=== PATIENT | male | born 1965 | race Caucasian/White ===

== ENCOUNTER 2022-06-22 09:34 | Outpatient (REF) | payer BC, MEDICAID, SELFPAY ==
[2022-06-22 11:36] LABS: Anion Gap 14 (12-20); Blood Urea Nitrogen 12 mg/dL (9-16); Calcium 9.8 mg/dL (8.4-10.2); Carbon Dioxide 28 mmol/L (22-29); Chloride 100 mmol/L (96-108); Cholesterol 197 mg/dL; Estimated Glomerular Filt Rate > 60; Glucose Random 101 mg/dL (60-115); HDL Cholesterol 58 mg/dL; LDL Cholesterol Calculated 124 mg/dl; Potassium 4.7 mmol/L (3.3-5.1); Sodium 137 mmol/L (135-145); Triglycerides 75 mg/dL
== END 2022-06-22 09:35 | disposition home or self-care (01) ==
LOC: HO.LAB 09:34
PROVIDERS: PCP Family Medicine; Visit Provider Family Medicine
DX: Z13.220 Encounter for screening for lipoid disorders (principal); I10 Essential (primary) hypertension
CPT/HCPCS: 36415; 80048; 80061

== ENCOUNTER 2025-06-13 09:30 | Outpatient (AMB) | payer BC, SELFPAY ==
--- NOTE | 2025-06-13 09:41 | MHC.PC.OV ---
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: No Accompanied by: Self / Same As Patient Allergies Seasonal Allergies Allergy (Severe, Verified 06/13/25 09:59) Itchy Eyes Medication List - Last Reconciled 06/16/25 by AUNG Martinez clonidine HCl 0.1 mg PO BEDTIME fluticasone propionate 110 mcg/actuation 1 puff inhalation BID mecobalamin (vitamin B12) 1,000 mcg PO DAILY ygazgdqnlfhc-hulmeypk-evkhye 1 tab PO DAILY Tobacco use date assessed: 06/13/25 Dental Screening Dental Screen Date: 06/13/25 Did you have a dental visit in the last 12 months?: Yes Did you have a dental problem in the last 6 months where you did not have access to dental care?: No Was dental information given to patient?: Patient has dentist HPI establish care HPI Details Previous PCP: Shabana Fiore at [facility] Last visit: 12/2024 Last PE:11/2023 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 Medications: Family HX:family hx for glaucoma and macular degenerative-paternal uncle, chf paternal grandfather and uncle passed from chf. nonhodgkin lymphoma, maternal aunt pancreatic cancer orther aunt brain cancers, dementia both paternal aunt. Problem: The patient is a 59-year-old male presenting to [facility] primary care and for a general health evaluation. He reports a history of what he believes was major depression, which is now in remission, but he continues to experience anxiety, particularly with social interaction and leaving his home. He uses clonidine as needed but finds it causes significant sedation and is seeking a potential alternative. The patient reports persistent respiratory symptoms following a COVID-19 infection in May 2023 and an influenza infection in October. Symptoms include lingering congestion with nasal and oral discharge that is typically white and sometimes gelatinous. A chest X-ray around December was reportedly normal. He quit drinking alcohol one year ago and subsequently started smoking cigarettes, with a current consumption of 5-7 per day. His previous primary care provider had prescribed an inhaler, which he found to be expensive. He has a history of back problems and rotator cuff issues in both shoulders, which have been present for approximately 10 years and were previously managed with x-rays and medication. He also experiences intermittent mechanical lower back pain. Past surgical history includes an umbilical hernia repair about 6 years ago. A past colonoscopy resulted in the removal of six polyps. In 2022, an ultrasound of a suspected lump on the left testicle was benign, showing a fibrous tissue. The patient sees an care management associate for regular check-ups due to a family history of glaucoma and macular degeneration. He denies any personal history of hypertension, chest pain, or diabetes, and reports that his last blood tests were normal. [facility] Medical History Panic attacks Generalized anxiety disorder Major depression Surgical History History of colonoscopy with polypectomy H/O umbilical hernia repair Family History Paternal Uncle Glaucoma Degenerative myopia with macular hole, bilateral eye Paternal Grandfather CHF (congestive heart failure) Paternal Uncle CHF (congestive heart failure) Paternal Aunt Non Hodgkin's lymphoma Pancreatic cancer Paternal Aunt Brain cancer Dementia Social History Alcohol intake: never Patient Tobacco Use Status: Current everyday Tobacco user Tobacco use type: Cigarette e-Cigarette/Vaping Use: Never Used Substance Use Type: Marijuana Current occupational status: employed 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 1. Little interest or pleasure in doing things: not at all 2. Feeling down, depressed, or hopeless: not at all 3. Trouble falling or staying asleep, or sleeping too much: not at all 4. Feeling tired or having little energy: not at all 5. Poor appetite or overeating: not at all 6. Feeling bad about yourself - or that you are a failure or have let yourself or your family down: not at all 7. Trouble concentrating on things, such as reading the newspaper or watching television: not at all 8. Moving or speaking so slowly that other people could have noticed. Or the opposite - being so fidgety or restless that you have been moving around a lot more than usual: not at all 9. Thoughts that you would be better off or of hurting yourself in some way: not at all Total score: 0 Depression Screening Interpretation: Negative Depression Screening Done: Yes Source: Developed by Drs. Christopher Orellana, Cecilia Maloney, Ramo Dasilva and colleagues, with an educational kyle from [employer]. Thrive Questionnaire Date Thrive assessed: 06/13/25 I am a: Patient What is your living situation today?: I have a steady place to live Within the past 12 months, did the food you bought not last and you didn't have the money to get more?: Never true Within the past 12 months, did you worry whether your food would run out before you got money to buy more?: Never true Do you have trouble paying for medicines?: No Do you have trouble getting transportation to medical appointments?: No Do you have trouble paying your heating and electricity bill?: No Do you have trouble taking care of your child, family member or friend?: No Do you have trouble with day-to-day activities such as bathing, preparing meals, shopping, managing finances, etc.?: No Are you currently unemployed and looking for a job?: No Are you interested in more education?: No Currently or been in a relationship where the following occur: No concerns reported THRIVE Score: 0 AUDIT C Alcohol Use Questionnaire (AUDIT-C) 1. How often do you have a drink containing alcohol?: Never Total Score: 0 ANANYA-7 AMB Questionnaire ANANYA-7 Date ANANYA - 7 assessed: 06/13/25 Feeling nervous, anxious, or on edge: 2 = More than half the days Not being able to stop or control worryin = Not at all Worrying too much about different things: 0 = Not at all Trouble relaxin = Not at all Being so restless that it is hard to sit still: 0 = Not at all Becoming easily annoyed or irritable: 0 = Not at all Feeling afraid as if something awful might happen: 0 = Not at all Total ANANYA-7 score (0-4 normal; 5-9 mild; 10-14 moderate; 15-21 severe): 2 Source: Developed by Drs. Christopher Orellana, Cecilia Maloney, Ramo Dasilva and colleagues, with an educational kyle from [employer]. Review of Systems Narrative - Constitutional: Denies fever. - Eyes: Reports decreasing vision requiring a stronger prescription. - Respiratory: Reports persistent nasal and oral discharge, described as white and sometimes gelatinous. - Cardiovascular: Denies chest pain and high blood pressure. - Gastrointestinal: Denies heartburn, constipation, and diarrhea. - Musculoskeletal: Reports a history of bilateral shoulder pain and intermittent lower back pain. - Psychiatric: Reports anxiety with social interaction and leaving the house. - Endocrine: Denies a history of diabetes. Const Denies headache(s) Eyes Reports change in vision and Denies loss of vision ENT Denies vertigo, Denies dizziness, Denies headache(s), Reports nasal discharge (Whitish phlegm) and Denies sore throat Card Denies chest pain, Denies leg edema and Denies lightheadedness Resp Reports cough (Whitish phlegm), Denies hemoptysis and Denies wheezing GI Denies abdominal pain, Denies melena, Denies constipation, Denies diarrhea and Denies vomiting Denies dysuria, Denies urinary frequency and Denies urinary urgency Musc Reports back pain (Intermittent mid back), Reports arthralgias (Bilateral shoulders), Denies joint swelling, Denies numbness and Denies tingling Neuro Denies Abnormal speech present, Denies behavioral changes, Denies vertigo, Denies dizziness, Denies headache(s), Denies loss of vision, Denies memory loss, Denies numbness and Denies tingling Psych Reports anxiety (Generalized along with social), Denies behavioral changes, Denies depression, Denies memory loss and Reports panic attacks Vincent/Lymph Denies easy bleeding and Denies easy bruising Aller/Immun Denies wheezing Physical exam (Primary Care) Vital Signs: Last Vital Signs Temp 96.9 F 06/13/25 09:44 Pulse 66 06/13/25 09:44 Resp 18 06/13/25 09:44 BP 102/70 06/13/25 09:44 Pulse Ox 98 06/13/25 09:44 Oxygen Delivery Method Room Air 06/13/25 09:44 BMI result Body Mass Index 23.6 Tobacco/Smoking Status: Tobacco use Status Tobacco use date assessed 06/13/25 06/13/25 09:56 Patient Tobacco Use Status Current everyday Tobacco 06/13/25 09:56 Tobacco use type Cigarette 06/13/25 09:56 e-Cigarette/Vaping Use Never Used 06/13/25 09:56 PHQ-9: PHQ-9 Score PHQ-9: Total score 0 06/16/25 21:51 Depression Screening Interpretation: Negative Thrive Assessment: Date of Thrive Assessment Date Thrive assessed 06/13/25 06/13/25 09:42 Currently or been in a relationship where the following occur: No concerns reported Const General: healthy appearing, no acute distress, alert and awake Nutritional Appearance: well nourished Orientation/consciousness: oriented to person, oriented to place and oriented to time HENMT Ears: TM's normal bilaterally General nose exam: Normal nasal mucous membranes and turbinates present Eyes Conjunctivae: conjunctivae normal Sclerae: sclerae normal Pupils: Equal, round and reactive pupils present Neck Neck: Yes no lymphadenopathy and Yes no JVD Thyroid: Thyroid normal Carotids: no bruits Resp Effort & Inspection: normal respiratory effort and not tachypneic Auscultation: no crackles, no rales, no rhonchi and no wheezes Cardio Rate: regular rate Rhythm: regular rhythm Heart sounds: no murmurs and normal S1 and S2 GI Palpation (GI): Soft to palpation, nontender, no hepatomegaly and no splenomegaly Auscultation: normal bowel sounds Back/Spine/Pelvis Thoracic/Lumbar Spine: No thoracic spinal tenderness and No lumbar spinal tenderness Skin General skin exam: no rashes or lesions noted and dry skin Neuro General: oriented to person, oriented to place and oriented to time Cranial nerves: Yes Equal, round and reactive pupils present Speech: No Abnormal speech present Gait exam (Neuro): Normal gait present Motor exam (neuro): no tremor noted Extrem Right upper extremity: full ROM and shoulder/upper arm Details: no tenderness and no swelling Left upper extremity: full ROM and shoulder/upper arm Details: no tenderness and no swelling Right lower extremity: full ROM; no edema Left lower extremity: full ROM; no edema Psych Mental Status: mental status grossly normal Speech and movement: Normal speech and movement present Affect: normal affect Attitude: cooperative Thought process: Normal thought process present Coding Level of Care Code New Pt Level 3 (37594) Diagnoses Major depressive disorder, remission status unspecified, unspecified whether recurrent F32.9 Active/Remission status: remission status unspecified Major depression recurrence: unspecified whether recurrent Generalized anxiety disorder F41.1 Panic attacks F41.0 Bilateral shoulder pain, unspecified chronicity M25.511; M25.512 Chronicity: unspecified Smoker F17.200 Nasal congestion R09.81 Time Spent (min) 32 Assessment & Plan Assessment & Plan (1) Major depression: Code(s): F32.9 - Major depressive disorder, single episode, unspecified Category: Medical Qualifiers: Active/Remission status: remission status unspecified Major depression recurrence: unspecified whether recurrent Qualified Code(s): F32.9 - Major depressive disorder, single episode, unspecified Plan: Encouraged CBT Denies SI/HI (2) Generalized anxiety disorder: Code(s): F41.1 - Generalized anxiety disorder Category: Medical Plan: The patient reports ongoing social anxiety and agoraphobia, finding that his current medication, clonidine, causes excessive sedation. He has expressed interest in exploring alternative treatments in the future. No medication changes will be made at this time, pending a complete health evaluation. (3) Panic attacks: Code(s): F41.0 - Panic disorder [episodic paroxysmal anxiety] Category: Medical Plan: The patient reports ongoing social anxiety and agoraphobia, finding that his current medication, clonidine, causes excessive sedation. He has expressed interest in exploring alternative treatments in the future. No medication changes will be made at this time, pending a complete health evaluation. (4) Bilateral shoulder pain: Code(s): M25.511 - Pain in right shoulder; M25.512 - Pain in left shoulder Category: Medical Qualifiers: Chronicity: unspecified Qualified Code(s): M25.511 - Pain in right shoulder; M25.512 - Pain in left shoulder Plan: Ongoing shoulder pain, reports rotator cuff interest especially in left shoulder. Reports that the pain is mild, able to do 100 pushups a day. Continue conservative pain management. (5) Smoker: Code(s): F17.200 - Nicotine dependence, unspecified, uncomplicated Category: Social Hx Plan: Encouraged smoking cessation (6) Nasal congestion: Code(s): R09.81 - Nasal congestion Category: Medical Plan: Encouraged antihistamine OTC daily as needed. Orders: Orders UA CC w/rflx Micro + Cult 06/13/25 Z00.00 - Encounter for general adult medical examination without abnormal findings PSA,Total (Free>4and<10) 06/13/25 Z00. - Encounter for general adult medical examination without abnormal findings Complete Blood Count Auto Diff 06/13/25 Z00. - Encounter for general adult medical examination without abnormal findings Comprehensive Hiram. Panel Fast 06/13/25 Z00. - Encounter for general adult medical examination without abnormal findings Lipid Panel 06/13/25 Z00.00 - Encounter for general adult medical examination without abnormal findings TSH reflex Free T4 06/13/25 Z00. - Encounter for general adult medical examination without abnormal findings Vitamin D 25-OH Total 06/13/25 Z00.00 - Encounter for general adult medical examination without abnormal findings
[2025-06-13 09:44] VITALS: BP 102/70; PULSE 66; RESP 18; TEMP 36.1; O2SAT 98; BMI 23.6
== END 2025-06-13 11:54 | disposition home or self-care (01) ==
PROVIDERS: PCP Family Medicine
DX: F32.9 Major depressive disorder, single episode, unspecified (principal); F41.1 Generalized anxiety disorder; F41.0 Panic disorder [episodic paroxysmal anxiety]; M25.511 Pain in right shoulder; M25.512 Pain in left shoulder; F17.200 Nicotine dependence, unspecified, uncomplicated; R09.81 Nasal congestion

== ENCOUNTER 2025-07-18 10:14 | Outpatient (REF) | payer BC, SELFPAY ==
[2025-07-18 10:29] LABS: MANUAL DIFF FLAG NO
[2025-07-18 11:15] LABS: Hematocrit 47.7 % (42.0-52.0); Hemoglobin 16.6 g/dl (14.0-18.0); Imm Gran Abs Auto 0.03 X10*3/uL (0.00-0.03); Imm Gran Pct Auto 0.3 % (0.0-0.4); Lymphocytes Absolute Auto 1.8 X10*3/uL (1.2-4.9); Mean Corpuscular HGB Conc 34.8 g/dl (31.0-36.0); Mean Corpuscular Hemoglobin 33.5 pg (27.0-33.0); Mean Corpuscular Volume 96.4 fL (80.0-98.0); NRBC Abs Auto 0.000 X10*3/uL (0.0-0.012); NRBC Pct Auto 0.0 /100WBC (0.0-0.2); Platelet Count 176 X10*3/uL (160-400); Red Blood Count 4.95 X10*6/uL (4.60-5.80); White Blood Count 8.7 X10*3/uL (4.8-10.8)
[2025-07-18 12:02] LABS: Alanine Aminotransferase 20 U/L (0-40); Albumin Level 4.6 g/dL (3.5-5.0); Alkaline Phosphatase 66 U/L (39-117); Anion Gap 13 (12-20); Aspartate Amino Transferase 32 U/L (5-37); Blood Urea Nitrogen 13 mg/dL (9-16); Calcium 9.6 mg/dL (8.4-10.2); Carbon Dioxide 28 mmol/L (22-29); Chloride 105 mmol/L (96-108); Cholesterol 186 mg/dL (<200); Estimated Glomerular Filt Rate > 60; HDL Cholesterol 46 mg/dL (>40); Potassium 4.5 mmol/L (3.3-5.1); Sodium 141 mmol/L (135-145); Total Protein 7.3 g/dL (6.5-8.0); Triglycerides 73 mg/dL (<150)
[2025-07-18 12:12] LABS: PSA,Total (Free>4and<10) 0.43 ng/mL (0.00-4.00)
[2025-07-18 12:13] LABS: Appearance Urine Clear; Glucose Urine UA Negative (Negative); PH 7.5 (5.0-9.0); Specific Gravity - Urine 1.020 (1.005-1.025)
== END 2025-07-18 10:15 ==
LOC: HO.LAB 10:14
DX: Z00.00 Encounter for general adult medical examination without abnormal findings (principal); Z12.5 Encounter for screening for malignant neoplasm of prostate; Z13.0 Encounter for screening for diseases of the blood and blood-forming organs and certain disorders involving the immune mechanism; Z13.29 Encounter for screening for other suspected endocrine disorder; Z13.21 Encounter for screening for nutritional disorder; Z13.6 Encounter for screening for cardiovascular disorders
CPT/HCPCS: 36415; 80053; 80061; 81003; 82306; 84153; 84443; 85025

== ENCOUNTER 2025-07-26 10:00 | Outpatient (AMB) | payer BC, SELFPAY ==
[2025-07-26 10:06] VITALS: BP 120/84; PULSE 102; RESP 18; O2SAT 98; BMI 23.4
--- NOTE | 2025-07-26 10:06 | A.OFFPC_ITS ---
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 Pharmacovigilance Required: No Accompanied by: Self / Same As Patient Allergies Seasonal Allergies Allergy (Severe, Verified 07/26/25 10:19) Itchy Eyes Medication List - Last Reconciled 07/26/25 by AUNG Martinez clonidine HCl 0.1 mg PO BEDTIME fluticasone propionate 110 mcg/actuation 1 puff inhalation BID mecobalamin (vitamin B12) 1,000 mcg PO DAILY atdcrncrbyjs-akyszgyz-[id number] 1 tab PO DAILY Tobacco use date assessed: 07/26/25 Dental Screening Dental Screen Date: 07/26/25 Did you have a dental visit in the last 12 months?: Yes Did you have a dental problem in the last 6 months where you did not have access to dental care?: No Was dental information given to patient?: Patient has dentist HPI annual exam HPI Details Dentist: up to date Eye:up to date Snellen: Right: Left: Corrected vision: yes, STI screening: Colonoscopy: 2022 with removal of polyps to return in 5 years Pap Smer: PHQ-9: Flu: gvien in office COVID: x3 Tdap:2021 Diet:regular Exercise: 100 pushups and 100 crutches a day The patient is a 59 year old male presenting for an annual wellness visit, review of laboratory results, discussion of erectile dysfunction, anxiety, and tobacco use. He had a positive Cologuard test at one point, which prompted a colonoscopy in 2022 that turned out normal, with a recommendation for a repeat screening in five years. The patient reports erectile dysfunction, which he experienced during a couple of sexual encounters about a year ago after a long period of sexual inactivity. He states he can achieve an erection on his own but has difficulty maintaining it during intercourse, which he attributes to performance anxiety. He expressed frustration with a previous provider who was unwilling to prescribe medication like Viagra and instead wanted to refer him to urology. The patient has a history of anxiety and depression and currently takes clonidine as needed for anxiety, though he rarely uses it. He finds the medication causes excessive sedation and is dosed for bedtime, which is not helpful for his situational anxiety that occurs when he is going somewhere. Past medication trials for anxiety and depression include Wellbutrin, fluoxetine (Prozac), Paxil, and Zoloft, with some leading to adverse effects like dyskinesia. The patient is a current smoker, using 10-12 cigarettes per day, sometimes up to a full pack. He had previously quit in 2008 after a left tibial plateau fracture and resumed smoking about a year ago after quitting alcohol. He is interested in getting a low-dose lung CT scan for screening. His family history is positive for glaucoma and macular degeneration. The patient reports a regular exercise routine of 100 pushups and 100 crunches daily. He has a history of high blood pressure when he was younger. Health Maintenance The patient received his seasonal influenza vaccine during the visit. He is up to date on his tetanus vaccination and colonoscopy. A follow-up appointment is scheduled in six weeks to review the new medication trials, and an annual physical is scheduled for one year from now. 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 - Diet: Follows a regular diet. Eats arabella et mignon with butter and occasional eggs. - Exercise: Reports doing 100 pushups an d 100 crunches daily and acknowledges the need for more cardio. - Tobacco Use: Smokes 10-12 cigarettes d aily, sometimes increasing to a pack. He smoked until 2008, quit, and resumed smoking about a year ago. - Alcohol Use: Reports he has quit drink ing. Results - Labs: Recent labs were reviewed. - CBC: White blood cell and red blood ce ll counts were normal. MCV was noted to be slightly high but not clinically significant. - CMP: Electrolytes, kidney function, an d liver function were all normal. - Glucose: Normal. - Lipid Panel: Total cholesterol is slig htly elevated. HDL is good. - PSA: Normal. - Vitamin D: Normal. - TSH: Normal. - Urinalysis: Complete and normal. HPI Comments History of Present Illness Details History of Present Illness The patient is a 59 year old male presenting for an annual wellness visit, review of laboratory results, discussion of erectile dysfunction, anxiety, and tobacco use. He had a positive Cologuard test at one point, which prompted a colonoscopy in 2022 that turned out normal, with a recommendation for a repeat screening in five years. The patient reports erectile dysfunction, which he experienced during a couple of sexual encounters about a year ago after a long period of sexual inactivity. He states he can achieve an erection on his own but has difficulty maintaining i t during intercourse, which he attributes to performance anxiety. He expressed frustration with a previous provider who was unwilling to prescribe medication like Viagra and instead wanted to refer him to urology. The patient has a history of anxiety and depression and currently takes clonidine as needed for anxiety, though he rarely uses it. He finds the medication causes excessive sedation and is dosed for bedtime, which is not helpful for his situational anxiety that occurs when he is going somewhere. Past medication trials for anxiety and depression include Wellbutrin, fluoxetine (Prozac), Paxil, and Zoloft, with some leading to adverse effects like dyskinesia. The patient is a current smoker, using 10-12 cigarettes per day, sometimes up to a full pack. He had previously quit in 2008 after a left tibial plateau fracture and resumed smoking about a year ago after quitting alcohol. He is interested in getting a low-dose lung CT scan for screening. His family history is positive for glaucoma and macular degeneration. The patient reports a regular exercise routine of 100 pushups and 100 crunches daily. He has a history of high blood pressure when he was younger. Health Maintenance The patient received his seasonal influenza vaccine during the visit. He is up to date on his tetanus vaccination and colonoscopy. A follow-up appointment is scheduled in six weeks to review the new medication trials, and an annual physical is scheduled for one year from now. 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 - Diet: Follows a regular diet. Eats arabella et mignon with butter and occasional eggs. - Exercise: Reports doing 100 pushups an d 100 crunches daily and acknowledges the need for more cardio. - Tobacco Use: Smokes 10-12 cigarettes d aily, sometimes increasing to a pack. He smoked until 2008, quit, and resumed smoking about a year ago. - Alcohol Use: Reports he has quit drink ing. Results - Labs: Recent labs were reviewed. - CBC: White blood cell and red blood ce ll counts were normal. MCV was noted to be slightly high but not clinically significant. - CMP: Electrolytes, kidney function, an d liver function were all normal. - Glucose: Normal. - Lipid Panel: Total cholesterol is slig htly elevated. HDL is good. - PSA: Normal. - Vitamin D: Normal. - TSH: Normal. - Urinalysis: Complete and normal. PFSH Medical History Panic attacks Generalized anxiety disorder Major depression Surgical History History of colonoscopy with polypectomy H/O umbilical hernia repair Family History Paternal Uncle Glaucoma Degenerative myopia with macular hole, bilateral eye Paternal Grandfather CHF (congestive heart failure) Paternal Uncle CHF (congestive heart failure) Paternal Aunt Non Hodgkin's lymphoma Pancreatic cancer Paternal Aunt Brain cancer Dementia Social History Alcohol intake: never Patient Tobacco Use Status: Current everyday Tobacco user Tobacco use type: Cigarette e-Cigarette/Vaping Use: Never Used Substance Use Type: Marijuana Current occupational status: employed 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 Depression Screening Interpretation: Negative Depression Screening Done: Yes Source: Developed by Drs. Christopher Orellana, Ramo Jacobo and colleagues, with an educational kyle from [employer]. Thrive Questionnaire Date Thrive assessed: 06/13/25 Currently or been in a relationship where the following occur: No concerns reported THRIVE Score: 0 ANANYA-7 AMB Questionnaire ANANYA-7 Date ANANYA - 7 assessed: 06/13/25 Source: Developed by Drs. Christopher Orellana, Ramo Jacobo and colleagues, with an educational kyle from [employer]. Review of Systems Narrative Review of Systems - Psychiatric: Reports history of anxiety and depression. Experiences situational anxiety with symptoms of dread and clammy hands. - Genitourinary: Reports erectile dysfunction, characterized by difficulty maintaining an erection. Const Denies headache(s) Eyes Reports change in vision and Denies loss of vision ENT Denies vertigo, Denies dizziness, Denies headache(s) and Denies sore throat Card Denies chest pain, Denies leg edema and Denies lightheadedness Resp Denies hemoptysis and Denies wheezing GI Denies abdominal pain, Denies melena, Denies constipation, Denies diarrhea and Denies vomiting Denies dysuria, Denies urinary frequency and Denies urinary urgency Musc Reports back pain (Intermittent mid back), Reports arthralgias (Bilateral shoulders), Denies joint swelling, Denies numbness and Denies tingling Skin/Breast Denies lesions and Denies rash Neuro Denies Abnormal speech present, Denies behavioral changes, Denies vertigo, Denies dizziness, Denies headache(s), Denies loss of vision, Denies memory loss, Denies numbness and Denies tingling Psych Reports anxiety (Generalized along with social), Denies behavioral changes, Denies depression, Denies memory loss and Reports panic attacks Vincent/Lymph Denies easy bleeding and Denies easy bruising Aller/Immun Denies wheezing Physical exam (Primary Care) Vital Signs: Last Vital Signs Pulse 102 H 07/26/25 10:06 Resp 18 07/26/25 10:06 BP 120/84 07/26/25 10:06 Pulse Ox 98 07/26/25 10:06 Oxygen Delivery Method Room Air 07/26/25 10:06 BMI result Body Mass Index 23.4 Tobacco/Smoking Status: Tobacco use Status Tobacco use date assessed 07/26/25 07/26/25 10:13 Patient Tobacco Use Status Current everyday Tobacco 07/26/25 10:13 Tobacco use type Cigarette 07/26/25 10:13 e-Cigarette/Vaping Use Never Used 07/26/25 10:13 Depression Screening Interpretation: Negative Thrive Assessment: Date of Thrive Assessment Date Thrive assessed 06/13/25 07/26/25 10:13 Currently or been in a relationship where the following occur: No concerns reported Narrative Physical Exam - General: Patient appears healthy. - HEENT: Otoscopic exam performed, no acute findings reported. - Respiratory: Lungs were auscultated; no abnormal findings were reported. Const General: healthy appearing, no acute distress, alert and awake Nutritional Appearance: well nourished Orientation/consciousness: oriented to person, oriented to place and oriented to time HENMT Ears: TM's normal bilaterally General nose exam: Normal nasal mucous membranes and turbinates present Eyes Conjunctivae: conjunctivae normal Sclerae: sclerae normal Pupils: Equal, round and reactive pupils present Neck Neck: Yes no lymphadenopathy and Yes no JVD Thyroid: Thyroid normal Carotids: no bruits Resp Effort & Inspection: normal respiratory effort and not tachypneic Auscultation: no crackles, no rales, no rhonchi and no wheezes Cardio Rate: regular rate Rhythm: regular rhythm Heart sounds: no murmurs and normal S1 and S2 GI Palpation (GI): Soft to palpation, nontender, no hepatomegaly and no splenomegaly Auscultation: normal bowel sounds General: Yes no CVA tenderness Back/Spine/Pelvis Back: no CVA tenderness Thoracic/Lumbar Spine: No thoracic spinal tenderness and No lumbar spinal tenderness Skin General skin exam: no rashes or lesions noted and dry skin Neuro General: oriented to person, oriented to place, oriented to time and CN's II-XI intact bilaterally Cranial nerves: Yes Equal, round and reactive pupils present and Yes Nystagmus not present Speech: No Abnormal speech present Gait exam (Neuro): Normal gait present Motor exam (neuro): 5/5 motor strength present throughout and no tremor noted Deep tendon reflexes (DTR's): Right triceps reflex intensity grade: 2+, Left triceps reflex intensity grade: 2+, Rt Biceps (C5, C6): 2+, Left biceps reflex intensity grade: 2+, Right brachioradialis reflex intensity grade: 2+ and Left brachioradialis reflex intensity grade: 2+ Extrem Right upper extremity: full ROM and shoulder/upper arm Details: no tenderness and no swelling Left upper extremity: full ROM and shoulder/upper arm Details: no tenderness and no swelling Right lower extremity: full ROM; no edema Left lower extremity: full ROM; no edema Psych Mental Status: mental status grossly normal Speech and movement: Normal speech and movement present Affect: normal affect Attitude: cooperative Thought process: Normal thought process present Office Procedures Flu Questionnaire Does the patient have a severe egg allergy?: No Does the patient have severe life threatening allergies?: No Does the patient have a fever or illness today?: No Has the patient ever had Guillain-[place] Syndrome?: No Has the patient ever had any past reaction to a flu shot?: No Immunizations Fluarix [id number] (PF) 45 mcg (15 mcg x 3)/0.5 mL IM syringe Performing Provider: AUNG Martinez Performing [facility] [place] [facility] Administered by: ADEN Leslie on 07/26/25 10:32 Dose Route Admin Location Dispensed Lot Number Expiration Date NDC Sand Conditioner Machine 0.5 mL IM Right Deltoid 0.5 mL [id number] 02/04/26 31301-938-39 [employer] VIS Given Date VIS Provided VIS Publication Date 07/26/25 Single Vaccine 24 Eligibility Eligibility Date Funding Source Not [facility] Eligible 07/26/25 Private Results Reviewed Results Reviewed: Laboratory Tests 07/18/25 07/18/25 10:21 10:29 WBC 8.7 RBC 4.95 Hgb 16.6 Hct 47.7 MCV 96.4 MCH 33.5 H MCHC 34.8 RDW 12.4 Plt Count 176 Sodium 141 Potassium 4.5 Chloride 105 Carbon Dioxide 28 Anion Gap 13 BUN 13 Creatinine 0.89 Estimated GFR > 60 Fasting Glucose 98 Calcium 9.6 Total Bilirubin 0.9 AST 32 ALT 20 Alkaline Phosphatase 66 Total Protein 7.3 Albumin 4.6 Triglycerides 73 Cholesterol 186 LDL Cholesterol, Calc 126 H HDL Cholesterol 46 Total PSA 0.43 25-OH Vitamin D Total 47.5 TSH 1.88 Urine Color Yellow Urine Appearance Clear Urine pH 7.5 Ur Specific [place] 1.020 Urine Protein Negative Urine Glucose (UA) Negative Urine Ketones Trace Urine Blood Negative Urine Nitrite Negative Ur Leukocyte Esterase Negative Coding Level of Care Code Est Pt Prev Care 40-64y(85908) Diagnoses Annual physical exam Z00.00 Major depressive disorder, remission status unspecified, unspecified whether recurrent F32.9 Major depression recurrence: unspecified whether recurrent Active/Remission status: remission status unspecified Generalized anxiety disorder F41.1 Panic attacks F41.0 Bilateral shoulder pain, unspecified chronicity M25.511; M25.512 Chronicity: unspecified Smoker F17.200 Nasal congestion R09.81 Erectile dysfunction, unspecified erectile dysfunction type N52.9 Erectile dysfunction type: unspecified Hyperlipidemia, unspecified hyperlipidemia type E78.5 Hyperlipidemia type: unspecified Time Spent (min) 36 Assessment & Plan Assessment & Plan (1) Annual physical exam: Code(s): Z00.00 - Encounter for general adult medical examination without abnormal findings Category: Medical Plan: Preventative guidelines and recent labs reviewed with the patient. Colonoscopy in 2022 with removal of polyps, plans to repeat in 5 years. Flu vaccine given today in office. (2) Major depression: Code(s): F32.9 - Major depressive disorder, single episode, unspecified Category: Medical Qualifiers: Major depression recurrence: unspecified whether recurrent Active/Remission status: remission status unspecified Qualified Code(s): F32.9 - Major depressive disorder, single episode, unspecified Plan: Encouraged CBT Denies SI/HI (3) Generalized anxiety disorder: Code(s): F41.1 - Generalized anxiety disorder Category: Medical Plan: The patient reports ongoing social anxiety and agoraphobia, finding that his current medication, clonidine, causes excessive sedation. He has expressed interest in exploring alternative treatments in the future. Hydroxyzine 25 mg b.i.d. p.r.n. added. Follow up in six-weeks for re-evaluation. (4) Panic attacks: Code(s): F41.0 - Panic disorder [episodic paroxysmal anxiety] Category: Medical Plan: The patient reports ongoing social anxiety and agoraphobia, finding that his current medication, clonidine, causes excessive sedation. He has expressed interest in exploring alternative treatments in the future. Similarly, hydroxyzine 25 mg b.i.d. p.r.n. added. Return in 6 weeks for re-evaluation. (5) Bilateral shoulder pain: Code(s): M25.511 - Pain in right shoulder; M25.512 - Pain in left shoulder Category: Medical Qualifiers: Chronicity: unspecified Qualified Code(s): M25.511 - Pain in right shoulder; M25.512 - Pain in left shoulder Plan: Ongoing shoulder pain, reports rotator cuff injury especially in left shoulder. Reports that the pain is mild, able to do 100 pushups a day. Continue conservative pain management. (6) Smoker: Code(s): F17.200 - Nicotine dependence, unspecified, uncomplicated Category: Social Hx Plan: Encouraged smoking cessation. Over 20 years history of smoking. We will refer for lung cancer screening. (7) Nasal congestion: Code(s): R09.81 - Nasal congestion Category: Medical Plan: Nasal congestion on and off, improved from previous visit. Encouraged antihistamine OTC daily as needed. (8) Erectile dysfunction: Code(s): N52.9 - Male erectile dysfunction, unspecified Category: Medical Qualifiers: Erectile dysfunction type: unspecified Qualified Code(s): N52.9 - Male erectile dysfunction, unspecified Plan: Reports longstanding difficulty maintaining an erection. Starts Cialis 20 mg daily p.r.n.. Consider referring to Urology if the dysfunction continues. (9) HLD (hyperlipidemia): Code(s): E78.5 - Hyperlipidemia, unspecified Category: Medical Qualifiers: Hyperlipidemia type: unspecified Qualified Code(s): E78.5 - Hyperlipidemia, unspecified Plan: LDL 126, goal less than 100 mg/dL Encouraged low-cholesterol diet and activity as tolerated We will continue to monitor Plan Plan Patient was informed and verbally consented to the use of an ambient scribe for clinic note documentation during this visit. 1. Erectile Dysfunction The patient reports difficulty maintaining an erection, which is likely psychogenic due to performance anxiety, as he is able to achieve an erection on his own. Given his healthy status and normal labs, a trial of medication to help overcome this mental barrier is appropriate. A prescription for four tablets of sildenafil will be sent, to be taken as needed about 30 minutes before sexual activity. It was explained that if this does not resolve the issue, a referral to urology would be the next step for further workup. 2. Anxiety The patient reports situational anxiety and finds his current PRN clonidine to be overly sedating and inappropriately timed for his symptoms. After discussing his history of trying multiple antidepressants, a different approach for as-needed anxiety management will be trialed. A prescription for low-dose hydroxyzine will be sent, to be taken up to two times a day as needed for anxiety symptoms. The patient was counseled that this may cause dry mouth and to stay hydrated. A follow-up visit is scheduled in six weeks to assess the effectiveness of this new medication. 3. Tobacco Use Disorder The patient is a current smoker and qualifies for lung cancer screening based on his age and smoking history. A referral will be placed for a low-dose CT lung scan, and the office will contact him to schedule the appointment. 4. Hyperlipidemia The patient has a mild elevation in his cholesterol, which may be related to diet and a possible hereditary component. He was counseled on dietary sources of cholesterol, including red meat, egg yolks, pork, dairy, and shellfish. No medication is indicated at this time, and the plan is to continue monitoring with lifestyle modifications. Discussion Notes I reviewed the patient's recent lab results with him, noting that they were overall very good, with the exception of a mild elevation in cholesterol. We discussed dietary contributors to high cholesterol. We discussed his concern about erectile dysfunction. I explained that his symptoms are likely related to performance anxiety, especially since he can achieve an erection but has trouble maintaining it, and prescribed a small quantity of sildenafil to help him overcome this mental toshia. I also clarified that sildenafil was originally developed as a blood pressure medication and works by vasodilation, which would actually help lower his blood pressure, not raise it. Regarding his anxiety, we discussed the sedating effects of his current medication, clonazepam, and how it is not suitable for his situational anxiety. I prescribed a trial of low-dose hydroxyzine as a less sedating as-needed alternative. I explained potential side effects like dry mouth and scheduled a follow-up in six weeks to assess its efficacy. I confirmed that he is a candidate for a low-dose CT for lung cancer screening due to his age and smoking history, and I placed a referral for this test. Finally, we administered the influenza vaccine and planned for his next annual physical in one year. Patient Instructions - You will be prescribed a few tablets of sildenafil (Viagra) for erectile dysfunction. Take one pill about 30-60 minutes before you plan to have sex. Do not take more than one pill in a 24-hour period. - For anxiety, you will be prescribed hydroxyzine. You can take this medication as needed when you feel anxious, up to two times per day. This may cause dry mouth, so be sure to drink fluids. - You received a flu shot today. - A referral has been sent for a low-dose CT scan of your lungs for cancer screening. The imaging center will call you to schedule this. - Continue your daily exercise. Try to add more cardiovascular activities like jogging. - Be mindful of foods high in cholesterol, such as red meat, butter, and egg yo lks, as your cholesterol is slightly high. - Please schedule a follow-up appointment in six weeks to discuss how the new medications are working. - Your next annual physical exam will be in one year. Orders: Orders Influenza [id number] Immunization 07/26/25 Z23 - Encounter for immunization Referrals Lung Cancer Screening Referral F17.200 - Nicotine dependence, unspecified, uncomplicated Medications: New tadalafil (Cialis) administer approximately 30min before sexual activity; do not use more than 1 dose per 24hrs 20 mg PO DAILY PRN 14 tabs 0RF sexual activity hydroxyzine HCl 25 mg PO BID PRN 60 tabs 0RF anxiety
== END 2025-07-26 10:50 | disposition home or self-care (01) ==
LOC: HO.HMCH 10:01
DX: Z23 Encounter for immunization (principal)

== ENCOUNTER → 2025-07-26 10:00 | Outpatient (BNVA) | payer BC, SELFPAY | DX: Z23 Encounter for immunization (principal) | CPT/HCPCS: 90471; 90656 ==